=== PATIENT | female | born 1950 | race Native Hawaiian/Other Pacific Islander ===

== ENCOUNTER 2018-10-06 09:54 | Outpatient (CLI) | payer MEDICARE | END 2018-10-06 09:55 | disposition home or self-care (01) | LOC: C.DEXAIC 09:54 | DX: M81.0 Age-related osteoporosis without current pathological fracture (principal); Z12.31 Encounter for screening mammogram for malignant neoplasm of breast ==

== ENCOUNTER 2018-10-30 07:52 | Outpatient (CLI) | payer MEDICARE | END 2018-10-30 07:53 | disposition home or self-care (01) | LOC: C.LAB 07:52 | DX: E78.2 Mixed hyperlipidemia (principal); E55.9 Vitamin D deficiency, unspecified ==